=== PATIENT | female | born 1940 | race Hispanic/Latino ===

== ENCOUNTER 2017-03-02 21:25 | Observation (INO) | payer MEDICARE ==
[2017-03-02 21:32] VITALS: BMI 40.6
--- NOTE | 2017-03-02 21:43 | ED PDOC ---
Arrival/HPI - General Time Seen by Provider: 03/02/17 21:26 Historian: Patient - History of Present Illness Narrative History of Present Illness (Text): 03/02/17 21:36 76 year old female, whose past medical history includes hypertension, presents to the emergency department as a transfer from [facility] complaining of chest pain. Patient's case was discussed with Dr. Chavarria who is covering for Dr. Hidalgo who is covering for Dr. Sosa. Accepts patient for admission. Patient denies any fever, chills, shortness of breath, nausea, vomiting, diarrhea, urinary symptoms, back pain, neck pain, headache, dizziness , or any other complaints. Time/Duration: Other Symptom Onset: Gradual Symptom Course: Unchanged Activities at Onset: Light Context: Other (Transfer) Past Medical History - Provider Review Nursing Documentation Reviewed: Yes - Cardiac Hx Pacemaker: No - Neurological Hx Paralysis: No - Hematological/Oncological Hx Blood Transfusions: No Hx Blood Transfusion Reaction: No - Musculoskeletal/Rheumatological Hx Musculoskeletal Disorders: Yes - Psychiatric Hx Emotional Abuse: No Hx Physical Abuse: No Hx Substance Use: No - Anesthesia Hx Anesthesia Reactions: No Hx Malignant Hyperthermia: No - Suicidal Assessment Feels Threatened In Home Enviroment: No Family/Social History - Physician Review Nursing Documentation Reviewed: Yes Family/Social History: No Known Family HX Hx Alcohol Use: No Hx Substance Use: No Allergies/Home Meds Allergies/Adverse Reactions: Allergies acetaminophen [From Percocet] Allergy (Verified 03/02/17 21:46) ITCHING codeine Allergy (Verified 03/02/17 21:46) ITCHING Iodine and Iodide Containing Produc Allergy (Verified 03/02/17 21:33) RASH metronidazole [From Flagyl] Allergy (Verified 03/02/17 21:33) RASH oxycodone [From Percocet] Allergy (Verified 03/02/17 21:46) ITCHING Home Medications: Home Meds Medication Instructions Recorded Confirmed Aspirin [Adult Aspirin Regimen] 1 tab PO DAILY 03/02/17 03/02/17 Gabapentin [Neurontin] 1 tab PO DAILY 03/02/17 03/02/17 Ibuprofen [Advil] 1 tab PO PRN PRN 03/02/17 03/02/17 Levothyroxine [Synthroid] 1 tab PO DAILY 03/02/17 03/02/17 Metoprolol Tartrate [Lopressor] 1 tab PO DAILY 03/02/17 03/02/17 Review of Systems - Physician Review All systems were reviewed & negative as marked: Yes - Review of Systems Constitutional: absent: Fevers, Other (Chills) Respiratory: absent: SOB Cardiovascular: Chest Pain Gastrointestinal: absent: Diarrhea, Nausea, Vomiting Genitourinary Female: absent: Dysuria, Frequency, Hematuria Musculoskeletal: absent: Back Pain, Neck Pain Neurological: absent: Headache, Dizziness Physical Exam Vital Signs Reviewed: Yes Vital Signs Temp Pulse Resp BP Pulse Ox 03/02/17 21:46 98.2 F 70 18 130/76 96 Temperature: Afebrile Blood Pressure: Normal Pulse: Regular Respiratory Rate: Normal Appearance: Positive for: Well-Appearing, Non-Toxic, Comfortable Pain Distress: None Mental Status: Positive for: Alert and Oriented X 3 - Systems Exam Head: Present: Atraumatic, Normocephalic Pupils: Present: PERRL Extroacular Muscles: Present: EOMI Conjunctiva: Present: Normal Mouth: Present: Moist Mucous Membranes Neck: Present: Normal Range of Motion Respiratory/Chest: Present: Clear to Auscultation, Good Air Exchange. No: Respiratory Distress, Accessory Muscle Use Cardiovascular: Present: Regular Rate and Rhythm, Normal S1, S2. No: Murmurs Abdomen: Present: Normal Bowel Sounds. No: Tenderness, Distention, Peritoneal Signs Back: Present: Normal Inspection Upper Extremity: Present: Normal Inspection. No: Cyanosis, Edema Lower Extremity: Present: Normal Inspection. No: Edema Neurological: Present: GCS=15, CN II-XII Intact, Speech Normal Skin: Present: Warm, Dry, Normal Color. No: Rashes Psychiatric: Present: Alert, Oriented x 3, Normal Insight, Normal Concentration Medical Decision Making ED Course and Treatment: 03/02/17 21:36 Impression: 76 year old female presents complaining of chest pain. Patient sent from [facility] for admission. asa nitro given district captain Plan: -- EKG -- Reassess and disposition Progress Notes: EKG shows NSR at 67 BPM with T-wave inversions. Anterior Leads. Interpreted by me. 03/02/17 21:40 Patient's case was discussed with Dr. Chavarria who is covering for Dr. Hidalgo who is covering for Dr. Sosa. Accepts patient for admission. 03/02/17 22:21 pt with shoulder pain, atypical pain, however accepted for admission district captain as transfer - Scribe Statement The provider has reviewed the documentation as recorded by the Alexander Badillo Provider Scribe Attestation: All medical record entries made by the Scribe were at my direction and personally dictated by me. I have reviewed the chart and agree that the record accurately reflects my personal performance of the history, physical exam, medical decision making, and the department course for this patient. I have also personally directed, reviewed, and agree with the discharge instructions and disposition. Disposition/Present on Arrival - Present on Arrival Any Indicators Present on Arrival: No - Disposition Have Diagnosis and Disposition been Completed?: Yes Diagnosis: Chest pain, Shoulder pain Disposition: HOSPITALIZED Disposition Time: 10:00 Condition: STABLE Discharge Instructions (ExitCare): Chest Pain (ED)
[2017-03-03] MEDS ORDERED: IBUPROFEN PO PRN (06:57)
[2017-03-03 07:18] VITALS: BP 122/82; PULSE 59; RESP 18; TEMP 97.9; O2SAT 94
[2017-03-03] MEDS ORDERED: Levothyroxine 75 MCG TAB PO SCH (07:30)
[2017-03-03 07:53] LABS: BASO # 0.03 K/mm3 (0.0-2.0); BASO % 0.6 % (0.0-3.0); EOS # 0.2 (0.0-0.7); GRAN # 2.83 (1.4-6.5); GRAN % 52.6 % (50.0-68.0); HEMATOCRIT 38.5 % (36.0-48.0); LYMPH % 37.1 % (22.0-35.0); MEAN CELL VOLUME 88.7 fl (80.0-105.0); MEAN CORPUSCULAR HEMOGLOBIN 27.9 pg (25.0-35.0); MEAN CORPUSCULAR HGB CONC 31.4 g/dl (31.0-37.0); MEAN PLATELET VOLUME 12.1 fl (7.0-11.0); MONO # 0.4 (0.1-0.6); MONO % 6.7 % (1.0-6.0); RED CELL DISTRIBUTION WIDTH 15.1 % (11.5-14.5); WHITE BLOOD COUNT 5.4 10^3/ul (4.5-11.0)
[2017-03-03 08:04] LABS: ALB/GLOB RATIO 1.4 (1.1-1.8); ALKALINE PHOSPHATASE 48 U/L (38-126); ALT/SGPT 32 U/L (7-56); AST/SGOT 18 U/L (14-36); BILIRUBIN,TOTAL 0.6 mg/dL (0.2-1.3); BLOOD UREA NITROGEN 18 mg/dL (7-21); CALCIUM 8.9 mg/dL (8.4-10.5); CARBON DIOXIDE 27 mmol/L (21-33); CHLORIDE 108 mmol/L (98-107); GFR AFRICAN-AMERICAN > 60; GLUCOSE,RANDOM 94 mg/dL (70-110); SODIUM 140 mmol/L (132-148); TOTAL PROTEIN 5.8 g/dL (5.8-8.3)
[2017-03-03 08:16] LABS: TROPONIN I < 0.01 ng/mL
--- NOTE | 2017-03-03 11:19 | CON ---
DATE: 03/03/2017 INDICATIONS: Left shoulder pain. HISTORY OF PRESENT ILLNESS: This is a 76-year-old woman known to me who presented yesterday with pain in the left shoulder, which was worse than she has previously experienced . She was seen in the [facility] where a workup was apparently unremarkable including negative labs and a negative troponin. She was transferred to [facility] for admission and she was admitted to telemetry. Subsequently, she has had no further left shoulder pain. There was no chest pain, shortness of breath, orthopnea, PND, syncope, presyncope, lightheadedness, dizziness, vertigo, palpitations, edema or claudication. There is no fever, chills, cough, sputum production, hemoptysis, abdominal pain, nausea, vomiting, diarrhea, constipation or melena. PAST MEDICAL HISTORY: Notable for hypertension. She has had cardiac catheterizations in the past, which were negative for coronary artery disease. There is a history of obesity, sedentary life style, she has discogenic disease and states that she had a fairly recent MRI of the neck, which showed bulging discs. She has been treated by Dr. Dillon. She believes that this shoulder pain might be related to the disc problem. There is no history of rheumatic fever, myocardial infarction, congestive heart failure, stroke, TIA, diabetes or gout. MEDICATIONS: At the time of admission, her medications include aspirin, gabapentin, Synthroid, Advair, and metoprolol. ALLERGIES: SHE NOTES ALLERGIES TO TYLENOL, CODEINE, IODINE, FLAGYL, AND PERCOCET. FAMILY HISTORY: Noncontributory. SOCIAL HISTORY: She lives at home with her . She is ambulatory. She utilizes a cane. She does not smoke. She does not drink alcohol. She is a retired nurse. REVIEW OF SYSTEMS: A 10-point review of systems is otherwise unremarkable except as noted above. PHYSICAL EXAMINATION: GENERAL: She is a well-developed woman lying in bed on telemetry in no acute distress. VITAL SIGNS: Unremarkable. She is in sinus rhythm to sinus bradycardia of 59 to 70 beats per minute. She is afebrile. Blood pressure is 122/82, respirations are 18 to 20, and O2 saturation is 94% to 96% on room air. HEENT: Reveals no neck vein distention, thyromegaly or carotid bruits. Mucous membranes are moist. Conjunctivae pink. NECK: Supple. LUNG: Lung nunez clear. HEART: Examination of the heart reveals normal first and second heart sounds. No murmur, gallop, rub or click. ABDOMEN: Soft. Bowel sounds present. No mass, organomegaly, tenderness, rebound, guarding, CVA tenderness or palpable abdominal aortic aneurysm. EXTREMITIES: Reveals no cyanosis, clubbing or edema. NEUROLOGIC: Awake, alert, and oriented. PSYCHIATRIC: Normal as to mood and affect. SKIN: Warm and dry. No rash or cellulitis. LABORATORY DATA: CBC is unremarkable. Electrolytes, BUN, creatinine, blood sugar, LFTs, and troponin all negative this morning. IMPRESSION: Amy Vance is a 76-year-old woman who experienced severe left shoulder discomfort, which has now resolved. It may be related to discogenic disease, recently documented by MRI and treated with injection by Dr. Dillon. She has a history of hypertension and unremarkable cardiac caths over the years as well as obesity and a very sedentary lifestyle. PLAN: At this time, I will repeat a troponin at noon time. I would anticipate an early discharge with outpatient followup by Dr. Dillon and Dr. Sosa. I will review her old office records. I believe that she has had a fairly recent nuclear stress test, but if not we can arrange this. She will keep us informed of her symptoms. We will continue her current medications, which include aspirin, metoprolol, gabapentin, Synthroid, and Advil p.r.n. Blair Carlton MD MTDOlivier
--- NOTE | 2017-03-03 17:23 | CARD ---
APPROVED REPORT EKG Measurement Heart [id number] <Conclusion> Sinus bradycardia ST & T wave abnormality, consider anterior ischemia Abnormal ECG
--- NOTE | 2017-03-03 17:26 | CARD ---
APPROVED REPORT EKG Measurement Heart [id number] <Conclusion> Normal sinus rhythm ST & T wave abnormality, consider anterior ischemia Abnormal ECG
--- NOTE | 2017-03-04 00:38 | DS ---
DISCHARGE DIAGNOSES: 1. Neck pain radiating to left arm. 2. Hypertension. 3. Hypothyroidism. HOSPITAL COURSE: The patient was admitted with neck pain, radiating to the left arm. Cardiac enzymes were negative. EKG showed anterior lead changes. Evaluated by Cardiology, Dr. Carlton. Stress test would be arranged as an outpatient. She does not have any chest pain. Cardiovascular stable. PHYSICAL EXAMINATION ON DISCHARGE: GENERAL: Comfortable in bed, in no acute distress. VITAL SIGNS: Temperature 98.5, heart rate 80 per minute, blood pressure 110/70, respiratory rate 16 per minute, and pulse oximetry is 98% on room air. HEENT: Normal. CHEST: Fair air entry present and equal bilaterally. No added sounds. CARDIOVASCULAR: S1 and S2 normal. No murmur. No gallop. ABDOMEN: Soft and nontender. No hepatosplenomegaly. EXTREMITIES: 1+ edema. QUALITY MANAGER: Alert and oriented x3. No focal sensory or motor deficit. CONDITION ON DISCHARGE: Stable. DISPOSITION: Discharged home. DISCHARGE MEDICATIONS: Synthroid 75 mcg daily, aspirin 81 mg daily, gabapentin 100 mg daily, and metoprolol 25 mg daily. DISCHARGE FOLLOWUP: Follow up with Dr. Carlton in 1 week. Follow up with Dr. Hidalgo in 1 week. Time spent in preparing discharge and coordinating care 50 minutes. Discussed with the staff nurse, discussed with the patient. Anne Shaw MD
--- NOTE | 2017-03-04 00:39 | HP ---
DATE OF ADMISSION: 03/02/2017 HISTORY OF PRESENT ILLNESS: Ms. Vance is a 76-year-old female who is presented to the ED with the neck pain radiating to the left arm. She has history of hypertension. She denies any nausea or vomiting. No urinary incontinence. No altered sensorium. She has history of hypertension, blood pressure controlled on current medications. Denies any chest pain. PAST MEDICAL HISTORY: Hypertension. PERSONAL HISTORY: Nonsmoker. No history of alcohol abuse. FAMILY HISTORY: Noncontributory. ALLERGIES: MULTIPLE DRUG ALLERGIES OXYCODONE,FLAGYL, IODINE, CODEINE, ACETAMINOPHEN AND PERCOCET. HOME MEDICATIONS: Aspirin 81 mg daily, Neurontin 1 tablet daily, Synthroid 1 tablet daily, and metoprolol 1 tablet daily. REVIEW OF SYSTEMS: As per HPI. Rest of 12-point review of systems reviewed negative PHYSICAL EXAMINATION: GENERAL: Comfortable in bed, in no acute distress. VITAL SIGNS: Temperature is 98.2, heart rate is 70 per minute, respiratory rate is 18 per minute, blood pressure is 130/76, and pulse oximetry is 96% room air. HEENT: Normal. NECK: Supple. No lymphadenopathy. CHEST: Air entry present and equal bilaterally. No added sounds. CARDIOVASCULAR: S1 and S2 normal. No murmur. No gallop. GASTROINTESTINAL: Abdomen is soft and nontender. No hepatosplenomegaly. EXTREMITIES: Bilateral 1+ edema. CENTRAL NERVOUS SYSTEM: Alert and oriented x3. No focal sensory or motor deficit. LABORATORY DATA: White count is 5.4, hemoglobin is 12.1, hematocrit is 38.5, and platelets of 162. Sodium of 140, potassium of 4, BUN of 18, creatinine of 0.9, and total bilirubin of 0.6. Troponin is 0.01. DIAGNOSTIC DATA: EKG: Sinus bradycardia, ST-T changes suggestive of anterior ischemia. ASSESSMENT AND PLAN: Neck pain radiating to left arm. Lymphocytosis and monocytosis. Hypertension. PLAN: She will be admitted to the hospital tele-monitoring. Aspirin 81 mg daily, Neurontin 100 mg daily, Synthroid 75 mcg daily, metoprolol 25 mg daily, and Advil p.r.n. Cardiology consultation, Dr. Carlton requested. Troponin will be drawn. Anne Shaw MD
== END 2017-03-03 14:40 | disposition home or self-care (01) ==
LOC: ED 21:25 → ERH 22:20 → 3RSO 23:57
PROVIDERS: ADMIT Internal Medicine Nephrology; ATTEND Internal Medicine Medical Oncology
DX: M54.2 Cervicalgia (principal); M25.512 Pain in left shoulder; I10 Essential (primary) hypertension; E03.9 Hypothyroidism, unspecified; E66.9 Obesity, unspecified; Z79.82 Long term (current) use of aspirin
CPT/HCPCS: 36415; 80053; 82550; 83615; 84484; 85025; 93005; 99285; G0378